=== PATIENT | female | born 1950 | race Caucasian/White ===

== ENCOUNTER → 2016-12-27 | Outpatient (CLI) | payer MEDICARE, MEDICAID ==
[~2016-12-27] MED LIST: ALPHAGAN *P* 0.15 ML OPHTH; AUGMENTIN875 MG PO; BACTRIM DS1 TAB PO; COLACE100 MG PO; COREG6.25 MG PO; COSOPT DROPS 1010 ML OPHTH; COUMADIN ** IA3 MG PO; COUMADIN 4MG **4 MG PO; COUMADIN2 MG PO; COUMADIN3 MG PO; DIAMOX250 MG PO; LASIX40 MG PO; LASIX80 M1 PO; LEVOTHROID (SY50 MCG PO; LEXAPRO20 MG PO; LIPITOR40 MG PO; LOVENOX 10100 MG/1 M PO; NEURONTIN300 MG PO; NORVASC10 MG PO; NORVASC5 MG PO; NOVOLOG MI100 UNIT/M SUB-Q; NOVOLOG100 UNIT/1 SUB-Q; NOVOLOG100 UNIT/M SUB-Q; PRILOSEC20 MG PO; PROVENTIL OR V6.7 GM INH; TRESIBA FL200 UNIT/1 SUB-Q; TYLENOL325 MG PO; VASOTEC10 M1 PO; VESICARE10 MG PO; XALATAN2.5 ML OPHTH
== END | disposition disaster alternative care site (69) ==
LOC: GAMB 09:18
DX: A41.9 Sepsis, unspecified organism (principal); I10 Essential (primary) hypertension; E11.9 Type 2 diabetes mellitus without complications; F43.9 Reaction to severe stress, unspecified; R53.1 Weakness; Z79.01 Long term (current) use of anticoagulants; Z79.4 Long term (current) use of insulin; Z79.899 Other long term (current) drug therapy; Z91.010 Allergy to peanuts

== ENCOUNTER → 2017-03-24 | Emergency (ER) | payer MEDICARE, MEDICAID | END | disposition disaster alternative care site (69) | LOC: GAMB 13:46 | DX: R53.1 Weakness (principal) ==